=== PATIENT | female | born 1935 | race Caucasian/White ===

== ENCOUNTER → 2016-12-02 | Outpatient (CLI) | payer MEDICARE, BC ==
[~2016-12-02] MED LIST: AMIO200T PO; AMIO200T42 PO; AMLO5TAB2 PO; ASPI-496 PO; ASPI-650 PO; ATOR20TA9 PO; ATOR40TA78 PO; FERR325T18 PO; FURO-93 PO; IPRA12.9 INH; LISI-167 PO; MECL-76 PO; METO25TA35 PO; METO25TA91 PO; OMEP20TA62 PO; RIVA10TA PO; RIVA15TA PO
[2016-12-02 08:46] LABS: HEMOGLOBIN 14.6 g/dL (11.7-16.4)
[2016-12-02 08:58] LABS: ASPARTATE AMINO TRANSFERASE 15 U/L (15-37); BLOOD UREA NITROGEN 12 mg/dL (7-18)
== END | disposition home or self-care (01) ==
LOC: STAR 07:35
PROVIDERS: ATTEND Surgery
DX: Z01.812 Encounter for preprocedural laboratory examination (principal); I48.0 Paroxysmal atrial fibrillation; I10 Essential (primary) hypertension; E78.2 Mixed hyperlipidemia; J44.9 Chronic obstructive pulmonary disease, unspecified; H35.343 Macular cyst, hole, or pseudohole, bilateral; R60.0 Localized edema; Z72.0 Tobacco use; Z79.899 Other long term (current) drug therapy
CPT/HCPCS: 36415; 80053; 85025

== ENCOUNTER 2016-12-09 13:01 | Observation (INO) | payer MEDICARE, BC ==
[2016-12-02 08:17] VITALS: BP 157/78
[~2016-12-09] VITALS: Ht 157.5 cm; Wt 82.0 kg
[2016-12-09] MEDS ORDERED: LIDOCAINE 1%, 2ML ONE (13:24)
[2016-12-09] MEDS ORDERED: LACTATED RINGERS 1,000 ML IV SCH (13:45)
[2016-12-09] MEDS ORDERED: PAPAVERINE 30 MG/ML, 2ML ONE (13:50)
[2016-12-09] MEDS ORDERED: THROMBIN 20,000 UNIT VIAL TP ONE (13:51)
[2016-12-09] MEDS ORDERED: BUPIVACAINE/PF 0.5% ONE (13:51)
[2016-12-09] MEDS ORDERED: HEPARIN 1,000 UNITS/ML, 10ML ONE (13:51)
[2016-12-09] MEDS ORDERED: BACITRACIN 50,000 UNIT ONE (13:51)
[2016-12-09] MEDS ORDERED: PROTAMINE SULFATE 10 MG/ML, 5ML ONE (13:51)
[2016-12-09] MEDS ORDERED: EPINEPHRINE 1 MG/ML, 1ML ONE (13:52)
[2016-12-09] MEDS ORDERED: LIDOCAINE 1%, 2ML SQ PRN (14:00)
[2016-12-09] MEDS ORDERED: FENTANYL PF 100 MCG/2ML ONE ×4 (14:21→18:29)
[2016-12-09] MEDS ORDERED: DEXAMETHASONE 4 MG/ML, 1ML ONE (15:19)
[2016-12-09] MEDS ORDERED: ROCURONIUM 10 MG/ML ONE (15:19)
[2016-12-09] MEDS ORDERED: SUCCINYLCHOLINE 20 MG/ML, 10ML ONE (15:19)
[2016-12-09] MEDS ORDERED: PHENYLEPHRINE 10 MG/ML ONE (15:19)
[2016-12-09] MEDS ORDERED: CEFAZOLIN 1,000 MG ONE (15:19)
[2016-12-09] MEDS ORDERED: PROPOFOL 10 MG/ML, 20ML ONE (15:19)
[2016-12-09] MEDS ORDERED: ONDANSETRON 2MG/ML, 2ML ONE ×2 (15:19→18:45)
[2016-12-09] MEDS: LACTATED RINGERS 1,000 ML IV SCH ×2 (17:14→21:42)
[2016-12-09] MEDS ORDERED: ACETAMINOPHEN 325 MG TABLET PO PRN ×2 (17:30→18:00)
[2016-12-09] MEDS ORDERED: FUROSEMIDE 20 MG TABLET PO PRN (17:30)
[2016-12-09] MEDS ORDERED: MECLIZINE CHEWABLE 25 MG TAB PO PRN (17:30)
[2016-12-09] MEDS ORDERED: HYDROcodone/APAP 5/325 TABLET PO PRN (17:30)
[2016-12-09] MEDS ORDERED: LABETALOL 5MG/ML 40ML VIAL IVPush PRN (17:30)
[2016-12-09] MEDS ORDERED: ONDANSETRON 2MG/ML, 2ML IVPush PRN ×2 (17:30→18:00)
[2016-12-09] MEDS ORDERED: HYDROmorphone 2 MG/ML, 1ML ONE (17:33)
[2016-12-09] MEDS: HYDROmorphone 1 MG/ML, 1ML IV PRN ×4 (17:43→18:19)
[2016-12-09] MEDS ORDERED: OXYcodone 5 MG/5 ML ORAL.SOL UDC PO PRN (18:00)
[2016-12-09] MEDS ORDERED: hydrALAzine 20 MG/ML, 1ML IV PRN (18:00)
[2016-12-09] MEDS ORDERED: ALBUTEROL SULFATE 2.5 MG/3 ML ONE (18:27)
[2016-12-09] MEDS: FENTANYL PF 100 MCG/2ML IV PRN ×2 (18:48→19:22)
[2016-12-09] MEDS ORDERED: IPRATROPIUM BROMIDE INH SCH (21:00)
[2016-12-09] MEDS ORDERED: ATORVASTATIN 40 MG TABLET PO SCH (21:00)
[2016-12-09] MEDS: METOPROLOL TARTRATE 25 MG TABLET PO SCH (21:00)
[2016-12-09] MEDS: CEFAZOLIN PMX 1GM/50ML 50 ML IVPB SCH (21:42)
[2016-12-09 23:52] VITALS: BP 90/54
[2016-12-10] MEDS: CEFAZOLIN PMX 1GM/50ML 50 ML IVPB SCH (05:59)
[2016-12-10 08:38] VITALS: BP 112/66
[2016-12-10] MEDS ORDERED: ASPIRIN 81 MG TABLET EC PO SCH (09:00)
[2016-12-10] MEDS: METOPROLOL TARTRATE 25 MG TABLET PO SCH (09:00)
[2016-12-10] MEDS ORDERED: AMIODARONE 200 MG TABLET PO SCH (09:00)
[2016-12-10] MEDS ORDERED: AMLODIPINE 5 MG TABLET PO SCH (09:00)
[2016-12-10] MEDS: LACTATED RINGERS 1,000 ML IV SCH (13:18)
[2016-12-10 15:37] VITALS: BP 109/63
[2016-12-10] MEDS ORDERED: ACET650S21 PO ×2 (17:32→17:34)
[2016-12-10] MEDS ORDERED: ACET325T14 PO (17:35)
[2016-12-10] MEDS ORDERED: IBUP200T48 PO (17:36)
== END 2016-12-10 18:10 | disposition home or self-care (01) ==
LOC: INTOOBSV 13:01 → ORIP 13:01 → 4NOR 20:09
PROVIDERS: ADMIT Surgery; ATTEND Surgery
DX: I65.21 Occlusion and stenosis of right carotid artery (principal); I10 Essential (primary) hypertension; J44.9 Chronic obstructive pulmonary disease, unspecified; R60.0 Localized edema; E78.2 Mixed hyperlipidemia; Z72.0 Tobacco use; I48.0 Paroxysmal atrial fibrillation; H35.343 Macular cyst, hole, or pseudohole, bilateral
CPT/HCPCS: 35301; 36415; 86850; 86900; 94640; 96365; 96375; C1729; C1781; G0378; J0171; J0330; J0690; J1100; J1170; J1644; J2370; J2405; J2704; J2720; J3010; J3490; J7120; J2440

== ENCOUNTER → 2016-12-26 | Outpatient (CLI) | payer MEDICARE, BC ==
[~2016-12-26] MED LIST changes: +ACET325T14 PO; +ACET650S21 PO; +IBUP200T48 PO
== END | disposition home or self-care (01) ==
LOC: CFH 07:33
PROVIDERS: ATTEND Internal Medicine Cardiovascular Disease
DX: I35.0 Nonrheumatic aortic (valve) stenosis (principal); I34.0 Nonrheumatic mitral (valve) insufficiency; E78.5 Hyperlipidemia, unspecified; I10 Essential (primary) hypertension; I48.0 Paroxysmal atrial fibrillation; Z72.0 Tobacco use
CPT/HCPCS: 78452; 93017; 93306; A9502

== ENCOUNTER 2017-06-13 08:59 | Emergency (ER) | payer MEDICARE, BC ==
[~2017-06-13] VITALS: Ht 162.6 cm; Wt 85.0 kg
[~2017-06-13 08:59] MED LIST changes: -IBUP200T48 PO; +IBUP200T49 PO
[2017-06-13] MEDS ORDERED: SODIUM CHLORIDE FLUSH 10ML SYR IVF ONE (09:30)
[2017-06-13 09:46] LABS: BASOPHILS # (AUTO) 0.06 x10^3/uL (0-0.1); BASOPHILS % (AUTO) 1 % (0-1); EOSINOPHILS # (AUTO) 0.19 x10^3/uL (0-0.4); EOSINOPHILS % (AUTO) 2 % (1-7); LYMPHOCYTES % (AUTO) 17 % (22-44); MD NO; MEAN CORPUSCULAR HEMOGLOBIN 26.7 pg (27.0-34.8); MEAN CORPUSCULAR HGB CONC 32.5 g/dL (32.4-35.8); MEAN PLATELET VOLUME 8.4 fL (7.4-10.4); MONOCYTES # (AUTO) 0.81 x10^3/uL (0.2-0.8); MONOCYTES % (AUTO) 7 % (2-9); NEUTROPHILS # (AUTO) 9.31 x10^3/uL (1.8-6.8); NEUTROPHILS % (AUTO) 75 % (42-75); PLATELET COUNT 286 x10^3/uL (130-400); RED BLOOD COUNT 5.44 x10^6/uL (3.82-5.3); RED CELL DISTRIBUTION WIDTH 15.9 % (9.6-15.2)
[2017-06-13 09:51] LABS: ALANINE AMINOTRANSFERASE 14 U/L (12-78); ANION GAP 7 mmol/L (5-15); CALCIUM 8.7 mg/dL (8.5-10.1); CHLORIDE 101 mmol/L (98-107)
[2017-06-13 09:53] LABS: ALKALINE PHOSPHATASE 85 U/L (45-117); BILIRUBIN,TOTAL 0.5 mg/dL (0.2-1.0); CREATININE 0.75 mg/dL (0.55-1.02); TOTAL PROTEIN 7.4 g/dL (6.4-8.2)
[2017-06-13] MEDS ORDERED: PLEASE ENTER WEIGHT MC SCH (10:00)
[2017-06-13] MEDS ORDERED: LORazepam 2 MG/ML, 1ML IVPush ONE (10:30)
[2017-06-13] MEDS ORDERED: LORazepam 2 MG/ML, 1ML ONE (11:11)
[2017-06-13 12:39] VITALS: BP 123/50
== END 2017-06-13 13:13 | disposition home or self-care (01) ==
LOC: ED 09:27
DX: I63.9 Cerebral infarction, unspecified (principal); I48.91 Unspecified atrial fibrillation; E03.9 Hypothyroidism, unspecified; I11.9 Hypertensive heart disease without heart failure; Z86.73 Personal history of transient ischemic attack (TIA), and cerebral infarction without residual deficits; E78.5 Hyperlipidemia, unspecified; Z90.49 Acquired absence of other specified parts of digestive tract; Z90.710 Acquired absence of both cervix and uterus
CPT/HCPCS: 36415; 70450; 70551; 71045; 80053; 85025; 93005; 96374; 99285; J2060

== ENCOUNTER → 2017-08-07 | Outpatient (CLI) | payer MEDICARE, BC ==
[~2017-08-07] MED LIST changes: +REGADENOSON 0.4 MG/5 ML SYRINGE ONE
== END | disposition home or self-care (01) ==
LOC: CFH 11:43
PROVIDERS: ATTEND Internal Medicine Cardiovascular Disease
DX: R07.9 Chest pain, unspecified (principal); I48.0 Paroxysmal atrial fibrillation
CPT/HCPCS: 78452; 93017; A9502; J2785

== ENCOUNTER 2018-06-18 12:41 | Emergency (ER) | payer MEDICARE, BC ==
[~2018-06-18] VITALS: Ht 157.5 cm; Wt 75.3 kg
[~2018-06-18 12:41] MED LIST changes: +AMLO-150 PO; -AMLO5TAB2 PO; +ATOR20TA37 PO; -ATOR20TA9 PO; -REGADENOSON 0.4 MG/5 ML SYRINGE ONE; -RIVA10TA PO; +RIVA10TA2 PO
[2018-06-18 13:19] LABS: MEAN CORPUSCULAR HEMOGLOBIN 22.8 pg (27.0-34.8); MEAN CORPUSCULAR HGB CONC 31.7 g/dL (32.4-35.8); MEAN PLATELET VOLUME 7.4 fL (7.4-10.4); PLATELET COUNT 436 x10^3/uL (130-400); RED BLOOD COUNT 4.66 x10^6/uL (3.82-5.3); RED CELL DISTRIBUTION WIDTH 17.1 % (9.6-15.2)
[2018-06-18 13:21] LABS: ALANINE AMINOTRANSFERASE 15 U/L (12-78); ALBUMIN 3.2 g/dL (3.4-5.0); ANION GAP 7 mmol/L (5-15); CALCIUM 8.8 mg/dL (8.5-10.1); CHLORIDE 103 mmol/L (98-107); CREATININE 0.83 mg/dL (0.55-1.02)
[2018-06-18 13:24] LABS: ALKALINE PHOSPHATASE 86 U/L (45-117); BILIRUBIN,TOTAL 0.3 mg/dL (0.2-1.0); TOTAL PROTEIN 7.1 g/dL (6.4-8.2)
[2018-06-18 13:42] LABS: BASOPHILS # (AUTO) 0.01 x10^3/uL (0-0.1); BASOPHILS % (AUTO) 0 % (0-1); EOSINOPHILS # (AUTO) 0.57 x10^3/uL (0-0.4); EOSINOPHILS % (AUTO) 5 % (1-7); LYMPHOCYTES # (AUTO) 2.52 x10^3/uL (1-3.4); LYMPHOCYTES % (AUTO) 20 % (22-44); MD SCAN; MONOCYTES # (AUTO) 0.51 x10^3/uL (0.2-0.8); MONOCYTES % (AUTO) 4 % (2-9); NEUTROPHILS # (AUTO) 8.97 x10^3/uL (1.8-6.8); NEUTROPHILS % (AUTO) 71 % (42-75)
--- NOTE | 2018-06-18 13:59 | NUR ---
PATIENT AMBULATORY TO ROOM AT THIS TIME.
--- NOTE | 2018-06-18 14:24 | NUR ---
requested records from [facility]
--- NOTE | 2018-06-18 14:29 | NUR ---
pt up to restroom to provide ua
--- NOTE | 2018-06-18 14:53 | NUR ---
REPORT FROM BETTY BROWNE
[2018-06-18 14:57] LABS: MICROSCOPIC NOT IND
[2018-06-18 14:58] LABS: CULTURE INDICATED? NO
--- NOTE | 2018-06-18 15:00 | NUR ---
PT SITTING UP IN [facility] NOTED. ERP AT BEDSIDE.
[2018-06-18 15:11] VITALS: BP 130/50
--- NOTE | 2018-06-18 16:01 | NUR ---
DC EDUCATION PROVIDED, PT DEMONSTRATES UNDERSTANDING. PT AMBULATED STEAIDLY TO DC WITH RN. PT STATES OWN O2 AVAILABLE FOR TRANSPORT HOME. PT TO DC WITH RN AND FRIEND. FRIEND TO TRANSPORT PT HOME.
== END 2018-06-18 16:03 | disposition home or self-care (01) ==
LOC: ED 15:49
DX: D50.0 Iron deficiency anemia secondary to blood loss (chronic) (principal); I48.91 Unspecified atrial fibrillation; I10 Essential (primary) hypertension; E78.5 Hyperlipidemia, unspecified; Z86.73 Personal history of transient ischemic attack (TIA), and cerebral infarction without residual deficits; Z90.49 Acquired absence of other specified parts of digestive tract; Z90.710 Acquired absence of both cervix and uterus
CPT/HCPCS: 36415; 80053; 81003; 85025; 99283

== ENCOUNTER → 2018-08-25 | Outpatient (CLI) | payer MEDICARE, BC ==
[~2018-08-25] MED LIST changes: +APIX5TAB PO; +HYDR-3240 PO; +LEVO125T PO
== END | disposition home or self-care (01) ==
LOC: STAR 13:51
PROVIDERS: ATTEND Surgery
DX: Z01.818 Encounter for other preprocedural examination (principal); I51.7 Cardiomegaly
CPT/HCPCS: 93005

== ENCOUNTER 2018-08-30 06:05 | Inpatient (IN) | payer MEDICARE, BC ==
[~2018-08-30] VITALS: Ht 160 cm; Wt 74.0 kg
[~2018-08-30 06:05] MED LIST changes: -HYDR-3240 PO; -LEVO125T PO
[2018-08-30] MEDS ORDERED: LACTATED RINGERS 1,000 ML IV SCH (06:16)
[2018-08-30] MEDS ORDERED: NEOSTIGMINE 1 MG/ML, 10ML ONE (08:19)
[2018-08-30] MEDS ORDERED: SUCCINYLCHOLINE 20 MG/ML, 10ML ONE (08:19)
[2018-08-30] MEDS ORDERED: PROPOFOL 10 MG/ML, 20ML ONE (08:19)
[2018-08-30] MEDS ORDERED: ROCURONIUM 10MG/ML,5ML ONE (08:19)
[2018-08-30] MEDS ORDERED: DEXAMETHASONE 4 MG/ML, 1ML ONE (08:19)
[2018-08-30] MEDS ORDERED: CEFAZOLIN 1,000 MG ONE (08:19)
[2018-08-30] MEDS ORDERED: ONDANSETRON 2MG/ML, 2ML ONE (08:19)
[2018-08-30] MEDS ORDERED: GLYCOPYRROLATE 0.2MG/1ML, 5ML ONE (08:19)
[2018-08-30] MEDS ORDERED: FENTANYL PF 250 MCG/5ML ONE (08:19)
[2018-08-30] MEDS ORDERED: EPHEDRINE 50 MG/ML, 1ML ONE (08:26)
[2018-08-30] MEDS ORDERED: LORazepam 2 MG/ML, 1ML IVPush PRN (08:30)
[2018-08-30] MEDS ORDERED: HYDROmorphone 2 MG/ML, 1ML IVPush PRN (08:30)
[2018-08-30] MEDS ORDERED: PROMETHAZINE 25 MG/ML, 1ML IV PRN (08:30)
[2018-08-30] MEDS ORDERED: OXYcodone 5 MG/5 ML ORAL.SOL UDC PO PRN (08:30)
[2018-08-30] MEDS ORDERED: ACETAMINOPHEN 325 MG TABLET PO PRN (08:30)
[2018-08-30] MEDS ORDERED: ALBUTEROL/IPRATROPIUM 2.5MG/0.5MG, 3 ML NPPB PRN (08:30)
[2018-08-30] MEDS ORDERED: LABETALOL 5MG/ML, 20ML IV PRN (08:30)
[2018-08-30] MEDS ORDERED: hydrALAzine 20 MG/ML, 1ML IV PRN (08:30)
[2018-08-30] MEDS ORDERED: ONDANSETRON ODT 8 MG PO PRN (08:30)
[2018-08-30] MEDS ORDERED: ONDANSETRON 2MG/ML, 2ML IV PRN ×2 (08:30→12:00)
[2018-08-30] MEDS ORDERED: OXYcodone 5 MG/5 ML ORAL.SOL UDC ONE (09:47)
[2018-08-30] MEDS ORDERED: FENTANYL PF 100 MCG/2ML ONE ×2 (09:47→10:56)
[2018-08-30] MEDS ORDERED: ACETAMINOPHEN 650 MG/20.3 ML UDC ONE (09:47)
[2018-08-30] MEDS: FENTANYL PF 100 MCG/2ML IV PRN ×6 (09:49→11:05)
[2018-08-30] MEDS ORDERED: hydrALAzine 20 MG/ML, 1ML ONE (10:23)
[2018-08-30] MEDS ORDERED: ALBUTEROL SULFATE 2.5 MG/3 ML ONE (10:56)
[2018-08-30] MEDS ORDERED: ALBUTEROL/IPRATROPIUM 2.5MG/0.5MG, 3 ML ONE (10:58)
[2018-08-30] MEDS ORDERED: HYDROcodone/APAP 5/325 TABLET PO PRN (12:00)
[2018-08-30] MEDS ORDERED: IPRATROPIUM 0.5 MG/2.5 ML INHA NPPB PRN (12:00)
[2018-08-30] MEDS ORDERED: HYDROmorphone 1 MG/ML, 1ML INJ IV PRN (12:00)
[2018-08-30 13:09] VITALS: BP 116/52
[2018-08-30] MEDS: METOPROLOL TARTRATE 25 MG TABLET PO SCH (18:00)
[2018-08-30 18:17] LABS: ALBUMIN 2.8 g/dL (3.4-5.0); CALCIUM 8.1 mg/dL (8.5-10.1)
[2018-08-30 19:52] VITALS: BP 105/46
[2018-08-30] MEDS: LACTATED RINGERS 1,000 ML IV SCH (21:00)
[2018-08-30 23:54] VITALS: BP 123/45
[2018-08-31 00:56] LABS: ALBUMIN 2.9 g/dL (3.4-5.0); CALCIUM 8.2 mg/dL (8.5-10.1)
[2018-08-31 05:21] VITALS: BP 106/45
[2018-08-31] MEDS: METOPROLOL TARTRATE 25 MG TABLET PO SCH (05:26)
[2018-08-31 07:07] LABS: ALBUMIN 2.7 g/dL (3.4-5.0); CALCIUM 8.1 mg/dL (8.5-10.1)
[2018-08-31 07:42] VITALS: BP 104/61
[2018-08-31] MEDS: LACTATED RINGERS 1,000 ML IV SCH (08:07)
[2018-08-31] MEDS ORDERED: LEVO125T PO (08:45)
[2018-08-31] MEDS ORDERED: HYDR-3240 PO (08:46)
[2018-08-31] MEDS ORDERED: AMLODIPINE 5 MG TABLET PO SCH (09:00)
[2018-08-31] MEDS ORDERED: AMIODARONE 200 MG TABLET PO SCH (09:00)
== END 2018-08-31 11:35 | disposition home or self-care (01) | DRG 626 ==
LOC: OUT 06:05 → 4NOR 11:36 → OUT 11:44 → DCLOUNGE 08-31 11:15
PROVIDERS: ADMIT Surgery; ATTEND Surgery
PROC: 0GTJ0ZZ Resection of Thyroid Gland Isthmus, Open Approach (ICD-10-PCS; 2018-08-30)
PROC: 0GTK0ZZ Resection of Thyroid Gland, Open Approach (ICD-10-PCS; principal; 2018-08-30 08:30)
DX: E04.2 Nontoxic multinodular goiter (principal); E44.0 Moderate protein-calorie malnutrition; J44.9 Chronic obstructive pulmonary disease, unspecified; I10 Essential (primary) hypertension; Z86.73 Personal history of transient ischemic attack (TIA), and cerebral infarction without residual deficits; E78.5 Hyperlipidemia, unspecified; I48.91 Unspecified atrial fibrillation; E78.00 Pure hypercholesterolemia, unspecified; F17.200 Nicotine dependence, unspecified, uncomplicated; R13.10 Dysphagia, unspecified; Z90.710 Acquired absence of both cervix and uterus; Z83.3 Family history of diabetes mellitus; Z82.3 Family history of stroke; Z88.5 Allergy status to narcotic agent; Z88.0 Allergy status to penicillin; Z88.8 Allergy status to other drugs, medicaments and biological substances; Z90.49 Acquired absence of other specified parts of digestive tract
CPT/HCPCS: 36415; 82040; 82310; 88307; 94640; G0378; J0690; J1100; J2405; J2704; J2710; J3010; J7620; C1760; J0330; J0360; J7120

== ENCOUNTER → 2020-09-18 | Outpatient (CLI) | payer MEDICARE, BC ==
[~2020-09-18] MED LIST changes: -ASPI-650 PO; +ASPI325T20 PO; +ASPI81TA45 PO; +CARV3.1212 PO; +FURO40TA6 PO; +HYDR-2214 PO; +LEVO125T PO; +POTA10CA PO; +REGADENOSON 0.4 MG/5 ML SYRINGE ONE
== END | disposition home or self-care (01) ==
LOC: CFH 08:41
PROVIDERS: ATTEND Internal Medicine Cardiovascular Disease
DX: I25.10 Atherosclerotic heart disease of native coronary artery without angina pectoris (principal); R07.89 Other chest pain
CPT/HCPCS: 78452; 93017; A9502; J2785